=== PATIENT | female | born 1975 | race African-American/Black ===

== ENCOUNTER 2021-03-20 13:39 | Inpatient (IN) ==
[2021-03-20 15:04] LABS: Calcium 8.9 MG/DL (8.5-10.1); Osmolality,Calculated 278.5 MOS/KG (273-304); Potassium 3.7 MMOL/L (3.5-5.1)
[2021-03-20] MEDS ORDERED: ASPIRIN 325 MG TABLET PO STA (15:09)
[2021-03-20] MEDS ORDERED: FUROSEMIDE 40 MG/4 ML VIAL IV STA (15:09)
[2021-03-20 15:17] LABS: Basophils % 0.3 % (0.0-0.8); Eosinophils % 0.2 % (0.00-10.9); Hematocrit 42.6 VOL% (35.7-47.0); Hemoglobin 13.4 GM/DL (12.0-16.0); Immature Granulocytes % 0.3 %; Immature Granulocytes Absolute 0.02 #; Lymphocytes % 15.6 % (21.3-54.2); Mean Corpuscular HGB Conc 31.5 GM/DL (32-36); Mean Corpuscular Volume 78.5 FL (87-102); Monocytes % 12.9 % (1.7-12.7); Neutrophils % 70.7 % (38.7-73.9); Platelet Count 85 T/CUMM (130-400); Red Blood Count 5.43 MC/CUMM (3.8-5.5); Red Cell Distribution Width 15.8 % (9.3-17.3); White Blood Count 6.2 T/CUMM (4-12)
[2021-03-20] MEDS ORDERED: DEXTROSE 50% 25 GM/50 ML VIAL IV PRN (17:03)
[2021-03-20] MEDS ORDERED: ONDANSETRON 4 MG/2 ML VIAL IV PRN (17:03)
[2021-03-20] MEDS ORDERED: DOCUSATE SODIUM 100 MG CAPSULE PO PRN (17:03)
[2021-03-20] MEDS ORDERED: MORPHINE 4 MG/1 ML VIAL IV PRN (17:03)
[2021-03-20] MEDS ORDERED: GLUCAGON 1 MG VIAL IM PRN (17:03)
[2021-03-20] MEDS ORDERED: hydrALAZINE 20 MG/1 ML VIAL IV PRN (17:03)
[2021-03-20] MEDS ORDERED: MAGNESIUM SULF RIDER 4 GM/100 ML PREMIX IV PRN (17:10)
[2021-03-20] MEDS ORDERED: MAGNESIUM SULF RIDER 2 GM/50 ML PREMIX IV PRN (17:10)
[2021-03-20] MEDS ORDERED: POTASSIUM CHLORIDE 20 MEQ TABLET PO PRN (17:19)
[2021-03-20] MEDS: APIXABAN 5 MG TABLET PO SCH (21:16)
[2021-03-20] MEDS: SILDENAFIL 20 MG TABLET PO SCH (21:30)
[2021-03-21 01:44] LABS: Bilirubin,Urine Negative (Negative); Blood, Urine Small mg/dL (Negative); Glucose,Urine (UA) Negative (Negative); Hyaline Casts,Urine 4 /LPF (0-3); Ketones,Urine Negative (Negative); Mucus,Urine Occasional /LPF (Occasional); Nitrite,Urine Negative (Negative); Protein,Urine Negative; RBC,Urine 1 /HPF (0-4); Squamous Epithelial Cell,Urine Occasional /HPF (0-10); Urine Appearance CLEAR (Clear); Urine Color Yellow (Yellow); Urine Specific Gravity 1.009 (1.001-1.035); Urine Urobilinogen < 2.0 EU/DL (0.2-1.0)
[2021-03-21 06:19] LABS: Basophils % 0.5 % (0.0-0.8); Eosinophils % 0.2 % (0.00-10.9); Hematocrit 35.7 VOL% (35.7-47.0); Hemoglobin 11.8 GM/DL (12.0-16.0); Immature Granulocytes % 0.5 %; Immature Granulocytes Absolute 0.03 #; Lymphocytes # 1.1 10*3/uL (1.4-4.0); Lymphocytes % 19.9 % (21.3-54.2); Mean Corpuscular HGB Conc 33.1 GM/DL (32-36); Mean Corpuscular Volume 76.8 FL (87-102); Monocytes % 13.7 % (1.7-12.7); Neutrophils % 65.2 % (38.7-73.9); Platelet Count 69 T/CUMM (130-400); Red Blood Count 4.65 MC/CUMM (3.8-5.5); Red Cell Distribution Width 15.5 % (9.3-17.3); White Blood Count 5.7 T/CUMM (4-12)
[2021-03-21 06:33] LABS: Hypochromasia 1+; Microcytosis 1+; Ovalocytes Slight; Platelet Estimate Decreased
[2021-03-21 06:45] LABS: Calcium 8.7 MG/DL (8.5-10.1); Osmolality,Calculated 276.7 MOS/KG (273-304); Potassium 3.6 MMOL/L (3.5-5.1); Risk Ratio 1.35; VLDL CHOLESTEROL 9.2 MG/DL
[2021-03-21] MEDS: SILDENAFIL 20 MG TABLET PO SCH ×3 (09:08→20:37)
[2021-03-21] MEDS: APIXABAN 5 MG TABLET PO SCH ×2 (09:08→20:37)
[2021-03-21] MEDS: PANTOPRAZOLE 40 MG TABLET PO SCH (09:08)
[2021-03-21] MEDS: DIGOXIN 0.125 MG TABLET PO SCH (09:09)
[2021-03-21] MEDS: SPIRONOLACTONE 25 MG TABLET PO SCH (09:09)
[2021-03-21] MEDS: EMTRICITAB RILPIVIR TENOFO ALA PO SCH (09:10)
[2021-03-21] MEDS: FUROSEMIDE 40 MG/4 ML VIAL IV SCH ×2 (09:10→17:11)
[2021-03-21] MEDS: AMBRISENTAN 10 MG PO SCH (09:32)
[2021-03-21] MEDS ORDERED: POTASSIUM CHLORIDE 10 MEQ TABLET PO SCH (17:11)
[2021-03-21] MEDS: ACETAMINOPHEN 325 MG TABLET PO PRN (19:42)
[2021-03-22 00:54] LABS: ABG Base Excess 3.5 MMOL/L (-2.5-2.5); ABG HCO3 27.4 MMOL/L (20-26); ABG Oxygen Saturation 93.1 % (95-100); ABG PCO2 42.8 MM HG (35-48); ABG PH 7.428 (7.35-7.45); ABG PO2 66.8 MM HG (80-95)
[2021-03-22 06:07] LABS: Basophils % 0.4 % (0.0-0.8); Eosinophils # 0.1 10*3/uL (0.0-0.87); Eosinophils % 1.6 % (0.00-10.9); Hematocrit 36.9 VOL% (35.7-47.0); Hemoglobin 11.9 GM/DL (12.0-16.0); Immature Granulocytes % 0.7 %; Immature Granulocytes Absolute 0.03 #; Lymphocytes # 1.1 10*3/uL (1.4-4.0); Lymphocytes % 23.7 % (21.3-54.2); Mean Corpuscular HGB Conc 32.2 GM/DL (32-36); Mean Corpuscular Volume 77.5 FL (87-102); Monocytes % 13.6 % (1.7-12.7); Platelet Count 69 T/CUMM (130-400); Red Blood Count 4.76 MC/CUMM (3.8-5.5); Red Cell Distribution Width 15.4 % (9.3-17.3); White Blood Count 4.5 T/CUMM (4-12)
[2021-03-22 06:23] LABS: Calcium 8.5 MG/DL (8.5-10.1); Osmolality,Calculated 277.7 MOS/KG (273-304); Potassium 3.7 MMOL/L (3.5-5.1)
[2021-03-22 06:32] LABS: Platelet Estimate Decreased
[2021-03-22 06:37] LABS: Hypochromasia 1+; Microcytosis 1+; Ovalocytes Slight
[2021-03-22] MEDS ORDERED: METOPROLOL TARTRATE 25 MG TABLET ONE (06:57)
[2021-03-22] MEDS ORDERED: METOPROLOL TARTRATE 25 MG TABLET PO ONE (07:30)
[2021-03-22] MEDS: MULTIVITAMIN (CENTRUM) TABLET PO SCH (09:00)
[2021-03-22] MEDS: DIGOXIN 0.125 MG TABLET PO SCH (09:00)
[2021-03-22] MEDS: SPIRONOLACTONE 25 MG TABLET PO SCH (09:00)
[2021-03-22] MEDS: PANTOPRAZOLE 40 MG TABLET PO SCH (09:00)
[2021-03-22] MEDS: APIXABAN 5 MG TABLET PO SCH ×2 (09:00→21:36)
[2021-03-22] MEDS: SILDENAFIL 20 MG TABLET PO SCH ×3 (09:01→21:36)
[2021-03-22] MEDS: AMBRISENTAN 10 MG PO SCH (09:01)
[2021-03-22] MEDS: EMTRICITAB RILPIVIR TENOFO ALA PO SCH (09:01)
[2021-03-22] MEDS: FUROSEMIDE 40 MG/4 ML VIAL IV SCH ×2 (09:02→15:14)
[2021-03-22 14:46] LABS: % CD4 (T Cells) 43 % (32-64); % CD8 (T Cells) 28 % (13-40); 4/8 Ratio 1.6 (>=0.9)
[2021-03-22] MEDS: ACETAMINOPHEN 325 MG TABLET PO PRN (15:12)
[2021-03-22] MEDS ORDERED: SODIUM CHLORIDE 0.45% 500 ML IV ONE (15:27)
[2021-03-22] MEDS: METOPROLOL TARTRATE 25 MG TABLET PO SCH (21:36)
[2021-03-23 05:42] LABS: Basophils % 0.6 % (0.0-0.8); Eosinophils # 0.1 10*3/uL (0.0-0.87); Eosinophils % 4.2 % (0.00-10.9); Hematocrit 35.2 VOL% (35.7-47.0); Hemoglobin 11.5 GM/DL (12.0-16.0); Immature Granulocytes % 0.3 %; Immature Granulocytes Absolute 0.01 #; Lymphocytes # 0.9 10*3/uL (1.4-4.0); Lymphocytes % 27.4 % (21.3-54.2); Mean Corpuscular HGB Conc 32.7 GM/DL (32-36); Mean Corpuscular Volume 78.2 FL (87-102); Monocytes % 10.6 % (1.7-12.7); Neutrophils % 56.9 % (38.7-73.9); Platelet Count 72 T/CUMM (130-400); Red Cell Distribution Width 15.2 % (9.3-17.3); White Blood Count 3.1 T/CUMM (4-12)
[2021-03-23 06:03] LABS: Microcytosis 1+; Platelet Estimate Decreased
[2021-03-23 06:07] LABS: Calcium 8.4 MG/DL (8.5-10.1); Osmolality,Calculated 275.1 MOS/KG (273-304)
[2021-03-23] MEDS: PANTOPRAZOLE 40 MG TABLET PO SCH (09:53)
[2021-03-23] MEDS: MULTIVITAMIN (CENTRUM) TABLET PO SCH (09:53)
[2021-03-23] MEDS: METOPROLOL TARTRATE 25 MG TABLET PO SCH (09:53)
[2021-03-23] MEDS: APIXABAN 5 MG TABLET PO SCH (09:53)
[2021-03-23] MEDS: SPIRONOLACTONE 25 MG TABLET PO SCH (09:53)
[2021-03-23] MEDS: DIGOXIN 0.125 MG TABLET PO SCH (09:54)
[2021-03-23] MEDS: SILDENAFIL 20 MG TABLET PO SCH ×2 (09:54→16:12)
[2021-03-23] MEDS: EMTRICITAB RILPIVIR TENOFO ALA PO SCH (09:55)
[2021-03-23] MEDS: FUROSEMIDE 40 MG/4 ML VIAL IV SCH ×2 (09:55→16:12)
[2021-03-23] MEDS: AMBRISENTAN 10 MG PO SCH (09:55)
[2021-03-23 16:19] VITALS: BP 83/55
== END 2021-03-23 16:43 | disposition home health service (06) | DRG 291 ==
LOC: N.ED 13:39 → N.EDINP 13:39 → SUATTDRO 17:02 → N.TELEN 17:48 → N.TELES 17:55
PROVIDERS: ADMIT Internal Medicine; ATTEND Internal Medicine

== ENCOUNTER 2022-01-23 11:20 | Inpatient (IN) ==
[2022-01-23 11:59] LABS: Basophils % 1.2 % (0.0-0.8); Eosinophils # 0.1 10*3/uL (0.0-0.87); Eosinophils % 2.2 % (0.00-10.9); Hematocrit 38.6 VOL% (35.7-47.0); Hemoglobin 12.1 GM/DL (12.0-16.0); Immature Granulocytes % 0.3 %; Immature Granulocytes Absolute 0.01 #; Lymphocytes % 31.4 % (21.3-54.2); Mean Corpuscular HGB Conc 31.3 GM/DL (32-36); Mean Corpuscular Volume 80.9 FL (87-102); Monocytes % 15.4 % (1.7-12.7); Neutrophils % 49.5 % (38.7-73.9); Platelet Count 70 T/CUMM (130-400); Red Blood Count 4.77 MC/CUMM (3.8-5.5); Red Cell Distribution Width 16.1 % (9.3-17.3); White Blood Count 3.3 T/CUMM (4-12)
[2022-01-23 12:22] LABS: Albumin 3.5 G/DL (3.4-5.0); Bilirubin,Total 2.2 MG/DL (0.20-1.00); Calcium 8.5 MG/DL (8.5-10.1); Osmolality,Calculated 278.7 MOS/KG (273-304); Potassium 3.6 MMOL/L (3.5-5.1); Total Protein 7.5 G/DL (6.4-8.2)
[2022-01-23 12:42] LABS: Elliptocytes 3+; Eosinophils 1 % (0-10); Lymphocytes 35 % (20-55); Segmented Neutrophils 54 % (50-85); Total Cells Counted 100
[2022-01-23 12:43] LABS: Schistocytes 1+
[2022-01-23 12:45] LABS: Platelet Estimate Decreased; Tear Drop Cells Slight
[2022-01-23 13:33] LABS: Arterial Base Excess iSTAT 1 MMOL/L (-2.5-2.5); Arterial Bicarbonate iSTAT 25.4 MMOL/L (20-26); Arterial O2 Saturation iSTAT 94 % (95-100); Arterial PCO2 iSTAT 37 MM HG (35-48); Arterial PO2 iSTAT 69 MM HG (80-95); Arterial Total CO2 iSTAT 27 MMO/L (23-27); Arterial pH iSTAT 7.443 (7.35-7.45)
[2022-01-23] MEDS ORDERED: FUROSEMIDE 40 MG/4 ML VIAL IV STA (13:58)
[2022-01-23 14:12] LABS: INR 1.5; PT Patient Result 15.8 SECS (10.5-12.0)
[2022-01-23] MEDS ORDERED: AZITHROMYCIN INJ 500 MG in SODIUM CHLORIDE 0.9% 250 ML IV STA (14:38)
[2022-01-23] MEDS ORDERED: cefTRIAXone 1,000 MG in SODIUM CHLORIDE 0.9% 100 ML IV STA (14:38)
[2022-01-23] MEDS ORDERED: GLUCAGON 1 MG VIAL IM PRN (15:44)
[2022-01-23] MEDS ORDERED: ONDANSETRON 4 MG/2 ML VIAL IV PRN (15:44)
[2022-01-23] MEDS ORDERED: DEXTROSE 10% 250 ML BAG IV PRN (16:04)
[2022-01-23 17:05] LABS: Hepatitis B Core IgM Quant 0.19 Index; Hepatitis B Surface Ag Quant 0.13 Index; Hepatitis B Surface Ag Result Non-Reactive (NonReactive); Hepatitis C Virus Ab Quant 0.07 Index; Hepatitis C Virus Ab Result Non-Reactive (NonReactive)
[2022-01-23] MEDS: ALBUTEROL/IPRATROPIUM 3 ML NEB RESP TX SCH (20:40)
[2022-01-23] MEDS: guaiFENesin/DM ER 600-30 MG TABLET PO SCH (22:03)
[2022-01-24] MEDS: ALBUTEROL/IPRATROPIUM 3 ML NEB RESP TX SCH ×4 (00:14→19:31)
[2022-01-24] MEDS: OSELTAMIVIR 30 MG CAPSULE PO SCH ×2 (00:33→11:03)
[2022-01-24] MEDS: SODIUM CHLORIDE 0.9% 1,000 ML IV SCH ×2 (03:50→21:54)
[2022-01-24 06:31] LABS: Basophils % 0.9 % (0.0-0.8); Eosinophils # 0.1 10*3/uL (0.0-0.87); Eosinophils % 3.1 % (0.00-10.9); Hematocrit 35.7 VOL% (35.7-47.0); Hemoglobin 11.1 GM/DL (12.0-16.0); Immature Granulocytes % 0.3 %; Immature Granulocytes Absolute 0.01 #; Lymphocytes # 1.1 10*3/uL (1.4-4.0); Lymphocytes % 30.5 % (21.3-54.2); Mean Corpuscular HGB Conc 31.1 GM/DL (32-36); Mean Corpuscular Volume 80.6 FL (87-102); Neutrophils % 53.2 % (38.7-73.9); Platelet Count 93 T/CUMM (130-400); Red Blood Count 4.43 MC/CUMM (3.8-5.5); Red Cell Distribution Width 16.2 % (9.3-17.3); White Blood Count 3.5 T/CUMM (4-12)
[2022-01-24 06:53] LABS: Bilirubin,Total 2.1 MG/DL (0.20-1.00); Calcium 7.9 MG/DL (8.5-10.1); Osmolality,Calculated 279.5 MOS/KG (273-304); Potassium 3.3 MMOL/L (3.5-5.1); Total Protein 6.6 G/DL (6.4-8.2)
[2022-01-24] MEDS ORDERED: POTASSIUM CHLORIDE 20 MEQ TABLET PO ONE (10:30)
[2022-01-24] MEDS ORDERED: FUROSEMIDE 40 MG/4 ML VIAL IV ONE (10:30)
[2022-01-24] MEDS: guaiFENesin/DM ER 600-30 MG TABLET PO SCH ×2 (11:03→21:45)
[2022-01-24] MEDS ORDERED: AZITHROMYCIN INJ 500 MG in SODIUM CHLORIDE 0.9% 250 ML IV SCH (15:00)
[2022-01-24] MEDS: PANTOPRAZOLE 40 MG VIAL IV SCH (17:26)
[2022-01-24] MEDS: cefTRIAXone 1,000 MG in SODIUM CHLORIDE 0.9% 100 ML IV SCH (17:27)
[2022-01-24] MEDS: FUROSEMIDE 40 MG/4 ML VIAL IV SCH (17:27)
[2022-01-24] MEDS: methylPREDNISolone SOD SUC 40 MG/1 ML VIAL IV SCH ×2 (17:27→21:46)
[2022-01-24] MEDS: APIXABAN 5 MG TABLET PO SCH (21:45)
[2022-01-24] MEDS: SILDENAFIL 20 MG TABLET PO SCH (21:45)
[2022-01-24] MEDS: OSELTAMIVIR 75 MG CAPSULE PO SCH (21:45)
[2022-01-25] MEDS: methylPREDNISolone SOD SUC 40 MG/1 ML VIAL IV SCH ×4 (00:27→23:15)
[2022-01-25] MEDS: ALBUTEROL/IPRATROPIUM 3 ML NEB RESP TX SCH ×4 (00:43→19:40)
[2022-01-25 06:53] LABS: Basophils % 0.3 % (0.0-0.8); Eosinophils % 0.3 % (0.00-10.9); Hematocrit 35.9 VOL% (35.7-47.0); Hemoglobin 11.1 GM/DL (12.0-16.0); Immature Granulocytes % 0.3 %; Immature Granulocytes Absolute 0.01 #; Lymphocytes # 0.5 10*3/uL (1.4-4.0); Lymphocytes % 14.9 % (21.3-54.2); Mean Corpuscular HGB Conc 30.9 GM/DL (32-36); Mean Corpuscular Volume 80.7 FL (87-102); Monocytes % 2.6 % (1.7-12.7); Neutrophils % 81.6 % (38.7-73.9); Platelet Count 78 T/CUMM (130-400); Red Blood Count 4.45 MC/CUMM (3.8-5.5); Red Cell Distribution Width 16.2 % (9.3-17.3); White Blood Count 3.4 T/CUMM (4-12)
[2022-01-25 07:13] LABS: Hypochromia Slight; Microcytosis Slight; Platelet Estimate Decreased
[2022-01-25 07:21] LABS: Calcium 8.1 MG/DL (8.5-10.1); Osmolality,Calculated 282.4 MOS/KG (273-304); Potassium 3.6 MMOL/L (3.5-5.1)
[2022-01-25] MEDS: DIGOXIN 0.125 MG TABLET PO SCH (09:03)
[2022-01-25] MEDS: SPIRONOLACTONE 25 MG TABLET PO SCH (09:03)
[2022-01-25] MEDS: SILDENAFIL 20 MG TABLET PO SCH ×3 (09:03→20:17)
[2022-01-25] MEDS: MULTIVITAMIN (CENTRUM) TABLET PO SCH (09:03)
[2022-01-25] MEDS: guaiFENesin/DM ER 600-30 MG TABLET PO SCH ×2 (09:03→20:17)
[2022-01-25] MEDS: APIXABAN 5 MG TABLET PO SCH ×2 (09:03→20:17)
[2022-01-25] MEDS: OSELTAMIVIR 75 MG CAPSULE PO SCH ×2 (09:04→20:17)
[2022-01-25] MEDS: AZITHROMYCIN 250 MG TABLET PO SCH (09:07)
[2022-01-25] MEDS: FUROSEMIDE 40 MG/4 ML VIAL IV SCH ×2 (09:10→15:53)
[2022-01-25] MEDS: PANTOPRAZOLE 40 MG VIAL IV SCH (09:13)
[2022-01-25] MEDS ORDERED: ACETAMINOPHEN 325 MG TABLET PO PRN (12:49)
[2022-01-25 13:48] LABS: % CD4 (T Cells) 51 % (32-64); % CD8 (T Cells) 28 % (13-40); 4/8 Ratio 1.8 (>=0.9)
[2022-01-25] MEDS: SODIUM CHLORIDE 0.9% 1,000 ML IV SCH (14:49)
[2022-01-25] MEDS: cefTRIAXone 1,000 MG in SODIUM CHLORIDE 0.9% 100 ML IV SCH (17:17)
[2022-01-26] MEDS: ALBUTEROL/IPRATROPIUM 3 ML NEB RESP TX SCH ×4 (01:30→19:30)
[2022-01-26] MEDS: guaiFENesin/DM ER 600-30 MG TABLET PO SCH ×2 (08:46→20:26)
[2022-01-26] MEDS: MULTIVITAMIN (CENTRUM) TABLET PO SCH (08:46)
[2022-01-26] MEDS: OSELTAMIVIR 75 MG CAPSULE PO SCH ×2 (08:47→20:26)
[2022-01-26] MEDS: SPIRONOLACTONE 25 MG TABLET PO SCH (08:47)
[2022-01-26] MEDS: DIGOXIN 0.125 MG TABLET PO SCH (08:47)
[2022-01-26] MEDS: SILDENAFIL 20 MG TABLET PO SCH ×3 (08:47→20:26)
[2022-01-26] MEDS: AZITHROMYCIN 250 MG TABLET PO SCH (08:47)
[2022-01-26] MEDS: PANTOPRAZOLE 40 MG TABLET PO SCH (08:47)
[2022-01-26] MEDS: APIXABAN 5 MG TABLET PO SCH ×2 (08:47→20:26)
[2022-01-26] MEDS: methylPREDNISolone SOD SUC 40 MG/1 ML VIAL IV SCH ×2 (08:51→16:11)
[2022-01-26] MEDS: FUROSEMIDE 40 MG/4 ML VIAL IV SCH ×2 (08:53→16:12)
[2022-01-26] MEDS: cefTRIAXone 1,000 MG in SODIUM CHLORIDE 0.9% 100 ML IV SCH (17:32)
[2022-01-27] MEDS: methylPREDNISolone SOD SUC 40 MG/1 ML VIAL IV SCH ×2 (01:18→10:31)
[2022-01-27] MEDS: ALBUTEROL/IPRATROPIUM 3 ML NEB RESP TX SCH ×3 (01:55→15:57)
[2022-01-27] MEDS: PANTOPRAZOLE 40 MG TABLET PO SCH (05:31)
[2022-01-27 07:54] LABS: Hematocrit 37.6 VOL% (35.7-47.0); Hemoglobin 11.9 GM/DL (12.0-16.0); Immature Granulocytes % 0.2 %; Immature Granulocytes Absolute 0.01 #; Lymphocytes # 0.4 10*3/uL (1.4-4.0); Lymphocytes % 7.8 % (21.3-54.2); Mean Corpuscular HGB Conc 31.6 GM/DL (32-36); Mean Corpuscular Volume 79.7 FL (87-102); Monocytes % 3.6 % (1.7-12.7); Neutrophils % 88.4 % (38.7-73.9); Platelet Count 95 T/CUMM (130-400); Red Blood Count 4.72 MC/CUMM (3.8-5.5); Red Cell Distribution Width 16.5 % (9.3-17.3)
[2022-01-27 08:07] LABS: Calcium 8.8 MG/DL (8.5-10.1); Osmolality,Calculated 279.5 MOS/KG (273-304); Potassium 3.6 MMOL/L (3.5-5.1)
[2022-01-27 08:16] LABS: Elliptocytes 2+
[2022-01-27 08:17] LABS: Anisocytosis 1+; Microcytosis 1+; Target Cells Slight
[2022-01-27 08:18] LABS: Hypochromia 1+; Platelet Estimate Decreased
[2022-01-27] MEDS: guaiFENesin/DM ER 600-30 MG TABLET PO SCH (10:32)
[2022-01-27] MEDS: FUROSEMIDE 40 MG/4 ML VIAL IV SCH (10:32)
[2022-01-27] MEDS: AZITHROMYCIN 250 MG TABLET PO SCH (10:33)
[2022-01-27] MEDS: OSELTAMIVIR 75 MG CAPSULE PO SCH (10:33)
[2022-01-27] MEDS: DIGOXIN 0.125 MG TABLET PO SCH (10:33)
[2022-01-27] MEDS: MULTIVITAMIN (CENTRUM) TABLET PO SCH (10:33)
[2022-01-27] MEDS: SILDENAFIL 20 MG TABLET PO SCH ×2 (10:33→15:58)
[2022-01-27] MEDS: APIXABAN 5 MG TABLET PO SCH (10:33)
[2022-01-27] MEDS: SPIRONOLACTONE 25 MG TABLET PO SCH (10:34)
[2022-01-27 17:16] VITALS: BP 108/75
[2022-01-28 09:06] LABS: Pneumocystis jiroveci Result Negative (Negative); Pneumocystis jiroveci Source sputum
== END 2022-01-27 15:00 | disposition home or self-care (01) | DRG 193 ==
LOC: N.ED 11:20 → SUATTDRO 15:44 → N.EDINP 15:44 → N.5E 20:46
PROVIDERS: ADMIT Internal Medicine; ATTEND Hospitalist